=== PATIENT | female | born 1935 | race Hispanic/Latino ===

== ENCOUNTER 2018-03-30 10:52 | Inpatient (IN) | payer MEDICARE, OTHER ==
[2018-03-30] MEDS ORDERED: Dexamethasone 20 MG/5 ML VIAL ONE (11:10)
[2018-03-30] MEDS ORDERED: Lidocaine 1% PF 5 ML VIAL ONE (11:10)
[2018-03-30] MEDS ORDERED: ePHEDrine/0.9% NaCl/PF SYRINGE 50 mg/10 ml ONE (11:10)
[2018-03-30] MEDS ORDERED: Ondansetron HCl/PF 4 MG/2 ML Vial ONE (11:10)
[2018-03-30] MEDS ORDERED: PROPOFOL 200 MG/20 ML VIAL ONE (11:10)
[2018-03-30] MEDS ORDERED: PHENYLEPHRINE-NS 100 MCG/ML 10 ML SYRINGE ONE (11:10)
[2018-03-30] MEDS ORDERED: Glycopyrrolate 0.2 MG/ML 5 ML SYRINGE ONE (11:10)
[2018-03-30 11:41] LABS: PTT 23.8 SEC (22.9-36.1)
[2018-03-30 11:47] LABS: INR-International Normal Ratio 1.1; Prothrombin Time 13.9 SEC (12.0-14.7)
[2018-03-30 11:54] LABS: ALT (SGPT) 13 U/L (8-55); AST (SGOT) 24 U/L (5-34); Albumin 4.1 g/dL (3.4-4.8); Alkaline Phosphatase 91 U/L (40-150); Anion Gap 14 mmol/L (10-20); BUN (Urea Nitrogen) 32 mg/dL (9.8-20.1); Bilirubin, Total 0.5 mg/dL (0.2-1.2); CK (CPK) 276 U/L (29-168); Calc. Creatinine Clearance 0 mL/min (70-130); Calcium 9.1 mg/dL (7.8-10.44); Carbon Dioxide 23 mmol/L (23-31); Chloride 107 mmol/L (98-107); Estimated GFR-MDRD 37; Globulin 3.3 g/dL (2.4-3.5); Glucose 108 mg/dL (83-110); Potassium 4.3 mmol/L (3.5-5.1); Protein, Total 7.4 g/dL (6.0-8.3); Sodium 140 mmol/L (136-145)
--- NOTE | 2018-03-30 11:56 | CT ---
CT OF THE BRAIN WITHOUT CONTRAST: Indication: Level II trauma. History of all with left femur fracture. Comparison: None. FINDINGS: No acute infarct, hemorrhage, or hydrocephalus is present. IMPRESSION: No acute intracranial abnormality. POS: [facility]
--- NOTE | 2018-03-30 11:57 | RAD ---
AP PELVIS: Indication: History of trauma with pelvic pain. FINDINGS: There is suspected hernia mesh involving the lower aspect of the pelvis. There is scattered degenerat josué and osteoarthritic change. Enthesopathic change seen off the proximal femurs and pelvis. There ar e prominent vascular calcifications within the adjacent soft tissues. IMPRESSION: No acute osseous abnormality. POS: [facility]
[2018-03-30 11:58] LABS: #Basophils 0.1 thou/uL (0.0-0.2); #Eosinphils 0.1 thou/uL (0.0-0.7); #Monocytes 0.6 thou/uL (0.11-0.59); %Basophils 0.6 % (0.0-1.0); %Eosinophils 1.3 % (0.0-10.0); %Lymphocytes 18.2 % (21.0-51.0); %Monocytes 5.9 % (0.0-10.0); Hemoglobin 12.9 g/dL (12.0-16.0); Mean Corpuscular HGB CONC 33.4 g/dL (32.0-36.0); Mean Corpuscular Hemoglobin 31.4 pg (27.0-31.0); Mean Corpuscular Volume 94.1 fL (78.0-98.0); Mean Platelet Volume 6.5 fL (7.4-10.4); Platelet Count 270 thou/uL (130-400); RBC Distribution Width 11.9 % (11.5-14.5); Red Blood Cell (RBC) Count 4.12 mill/uL (4.20-5.40); White Blood Cell (WBC) Count 10.8 thou/uL (4.8-10.8)
--- NOTE | 2018-03-30 11:58 | RAD ---
TWO VIEWS LEFT FEMUR: History: Trauma with left femur pain. FINDINGS: There is a comminuted midshaft left femur fracture with displacement of the distal fragment slightly medially one-half shaft width. There is valgus malalignment at the fracture site. There is moderate d egenerative arthrosis of the visualized left knee. There is mild degenerative arthrosis of the left h ip. IMPRESSION: Angulated mildly displaced left midshaft femur fracture. POS: [facility]
--- NOTE | 2018-03-30 12:00 | CT ---
CT CERVICAL SPINE WITHOUT CONTRAST: Indication: History of fall with left femur fracture and neck pain. Comparison: None. FINDINGS: There is mild multilevel spondylosis of the cervical spine. No acute fracture or subluxation is evide nt. Craniocervical junction appears within normal limits. Prevertebral soft tissues are normal. Lung apices are clear. IMPRESSION: No acute osseous abnormality. Findings concerning CT of the brain and cervical spine were called to Zenaida Wilson at 11:38 a.m. 03-30-18. Code AIME POS: [facility]
[2018-03-30] MEDS ORDERED: Fentanyl 100 MCG/2 ML VIAL ONE (12:32)
--- NOTE | 2018-03-30 12:52 | RAD ---
AP CHEST: Indication: History of trauma and chest pain. Comparison: 3-6- FINDINGS: Chronic lung change with mild cardiomegaly is stable. There is an expected skin fold within the upper thorax. No definite pneumothorax is evident. No definite acute osseous abnormality is evident. IMPRESSION: 1. Stable chronic lung changes of cardiomegaly. 2. This line traversing the upper thorax may be related to skin fold in the back. No definite pneumot horax, contusion or pleural effusion is demonstrated. POS: [facility]
--- NOTE | 2018-03-30 12:53 | RAD ---
THREE VIEWS LEFT SHOULDER: Indication: Left shoulder pain and trauma. Comparison: None. FINDINGS: There is some mild glenohumeral and AC joint osteoarthrosis. There is diffuse osteopenia. Visualized left lung is clear. IMPRESSION: No acute osseous abnormality. POS: [facility]
[2018-03-30] MEDS ORDERED: CEFAZOLIN/Water 2 GM/20 ML SYRINGE SLOW IVP SCH (13:00)
[2018-03-30] MEDS ORDERED: Ondansetron HCl/PF 4 MG/2 ML Vial IVP PRN ×2 (13:14→16:19)
[2018-03-30] MEDS ORDERED: traMADol HCl 50 MG TAB PO PRN (13:14)
[2018-03-30] MEDS ORDERED: Bisacodyl 10 MG SUPP PR PRN (13:14)
[2018-03-30] MEDS ORDERED: Ondansetron ODT 4 MG TAB PO PRN (13:14)
[2018-03-30] MEDS ORDERED: Milk Of Magnesia 30 ML UDCUP PO PRN (13:14)
[2018-03-30] MEDS ORDERED: Fentanyl 100 MCG/2 ML VIAL SLOW IVP PRN (13:14)
--- NOTE | 2018-03-30 13:18 | CON ---
DATE OF CONSULTATION: 03/30/2018 HISTORY OF PRESENT ILLNESS: We were asked by the Emergency Room and Trauma to see the patient. The patient was living at home with her and family. When the came in to use the restroom , found the patient on the ground. The family feels that the patient may have fallen out of bed. Th e patient does have dementia, Alzheimer's, but is able to answer questions fairly well. She does hav e a fairly significant amount of pain in that left lower extremity. She is currently in an immobiliz ation, a half-ring splint. Any time we moved this or try and loosen it, she is in quite a bit of katarina n. She denies any numbness or tingling into her extremities and can wiggle her toes and follow comma nds. Family is unsure if there is any loss of consciousness. Patient does not recall hitting her he ad nor does she have any bruising or lumps or bumps to the head or scalp or face. PAST MEDICAL HISTORY: Positive for glaucoma; coronary artery disease with an VA, treated with stents ; diabetes, type 2; hypertension; Alzheimer's. PAST SURGICAL HISTORY: Knee meniscectomy, appendectomy, cataracts, and stents. SOCIAL HISTORY: No alcohol or nicotine products. Resides at home with family. ALLERGIES: CODEINE. CURRENT MEDICATIONS: Per list is Fosamax, Ecotrin, calcium carbonate with vitamin D, Zyrtec, Dulcola x stool softeners, Aricept 5 and 10 mg, Cosopt eye drops for glaucoma, Atrovent, Avapro, Lamictal, Na menda, metformin, Toprol-XL, Nexium, simvastatin, and recently started mirtazapine for diet. REVIEW OF SYSTEMS: The patient is very sweet. Because we did not move her legs, she is in no acute distress. Her only complaint currently is that left leg pain. Denies any numbness and tingling in t he lower extremities. Denies any chest pain or any shortness of breath. Rest of review of systems n egative. PHYSICAL EXAMINATION: GENERAL: A well-nourished female, resting on a gurney in bed 21 in the emergency room, currently in a cervical collar. Speech is clear and she is answering simple questions okay. Family is giving us a history more so than the patient. HEENT: Normal exam. Face symmetric, tongue midline. NECK: In a cervical collar. EXTREMITIES: Upper extremities, other than some bruising on her arms, she is moving these fairly equ ally and they are in equal size, shape, symmetry, normal bulk and tone. Lower extremities, right low er extremity normal exam. Left lower extremity is in an immobilization traction splint. Palpation o r movement of that leg causes her some significant pain, but she has good, equal, symmetric DP and PT pulses, and is moving both of her foot and digits well. IMAGING: X-rays show a left femur fracture, approximately mid shaft. LABORATORY RESULTS: CBC within normal limits. Coags normal. Chemistries: BUN is 32. Creatinine 1 .37, a little bit elevated. Creatine kinase is also elevated to 76. ASSESSMENT: 1. Fall with ensuing left femur fracture. 2. Multiple health issues. 3. Alzheimer's. 4. Hypertension 5. Diabetes. PLAN: I spoke extensively with the family. Plan would be to fix her femur today and do an antegrade nail. I have explained the procedure, the patient's risks and benefits. The patient and family at the bedside is amenable to go forth with the procedure. We need medical clearance from trauma. Once we get that, we will proceed forth with the surgery. She is getting a Majano catheter inserted, lee ann fraser will help, get some fentanyl for some pain. We will get her consented. Hopefully, get her on the surgery schedule this afternoon. Her last time she ate was yesterday evening per family. Darell Jovel PA-C dictating for Ag Escobedo M.D.
[2018-03-30] MEDS ORDERED: Promethazine HCl 25 MG/ML VIAL IM PRN (16:19)
[2018-03-30] MEDS ORDERED: Promethazine HCl 25 MG/ML VIAL SLOW IVP PRN (16:19)
[2018-03-30 18:16] VITALS: BMI 25.3
[2018-03-30] MEDS ORDERED: TETANUS AND DIPHTHERIA TOX/PF 0.5 ML DISP.SYRIN IM SCH (18:30)
[2018-03-30] MEDS: Dorzolamide HCl/Timolol Maleate 2%/0.5% Ophth Soln 10 ml Bottle EA EYE SCH (20:23)
[2018-03-30] MEDS: Ipratropium Bromide 0.03% Nasal Inhaler 30 ml Bottle EA NARE SCH (20:24)
[2018-03-30] MEDS: Mirtazapine 30 MG TAB PO SCH (20:24)
[2018-03-30] MEDS: Simvastatin 20 MG TAB PO SCH (20:27)
[2018-03-30] MEDS: Donepezil HCl 10 MG TAB PO SCH (20:27)
[2018-03-30] MEDS: Docusate 100 MG CAP PO SCH (20:28)
[2018-03-30] MEDS: Calcium Carbonate + Vit D 1 TAB PO SCH (20:28)
[2018-03-30] MEDS ORDERED: Aspirin 81 mg Enteric Coated Tablet PO SCH (21:00)
[2018-03-30] MEDS: Lactated Ringer's 1,000 ML IV SCH (21:16)
[2018-03-30] MEDS: lamoTRIgine 25 MG TAB PO SCH (21:19)
--- NOTE | 2018-03-30 23:51 | OP ---
DATE OF SURGERY: 03/30/2018 PREOPERATIVE DIAGNOSIS: Left femoral shaft fracture. POSTOPERATIVE DIAGNOSIS: Left femoral shaft fracture. SURGICAL PROCEDURE: Intramedullary nail stabilization of left femur. ANESTHESIA: General. SURGEON: Ag Escobedo MD PRISM MEASURER: Darell Jovel PA-C IMPLANTS: Synthes X nail measuring 10 x 360 mm with two cross lock screws. COMPLICATIONS: None. DRAINS: None. SPECIMEN: None. OUTCOME: Near anatomic alignment. INDICATIONS: The patient is an 82-year-old lady found down with femoral shaft fracture. After discu ssion with patient and her family including risks and benefits, we decided to proceed with intramedul kiet stabilization for this midshaft fracture. Informed consent has been obtained. I believe all qu estions were answered. PROCEDURE IN DETAIL: The patient was brought to the operating room and a timeout performed followed by induction of general anesthesia. The patient was then positioned supine on the fracture table wit h two legs scissored to allow for AP lateral C-arm imaging of the left femur. A sterile prep and ta pe was then performed of the left thigh. Next, a small incision was made initially proximal to the t ip of the greater trochanter this being too proximal and as such a second incision was made just to t he tip of the greater trochanter and then blunt dissection carried down to the tip of the troch, a th readed guidewire was then passed from the medial side of the trochanter into the proximal femur canal . Once appropriately positioned, a reamer was passed over this guidewire to open the canal. Next, a ball-tip guidewire was passed down the canal across the fracture in the distal femoral metaphysis. This was then followed by reaming, starting at 8.5 and continuing up to 11. Once reamed a 10 x 360-m m nail was passed over the guidewire, once appropriately positioned, a single distal cross lock screw was placed in freehand technique from lateral to medial. The fracture was then backslapped to try a nd get compression and then a single dynamic screw was placed proximally through the jig. The jig wa s then removed from the nail and then AP, lateral C-arm images were obtained. The two proximal wound s were irrigated with normal saline and closed in layers with 2-0 Vicryl and janae. The two small stab wounds for cross lock screws were closed with janae. Xeroform gauze tape dressing was applied to the thigh wounds and then the patient was transferred to recovery room in stable condition. Ther e were no complications. She tolerated the procedure well.
[2018-03-31] MEDS: traMADol HCl 50 MG TAB PO PRN ×2 (03:06→23:46)
[2018-03-31 05:13] LABS: #Lymphocytes 1.8 thou/uL (1.20-3.40); #Monocytes 0.8 thou/uL (0.11-0.59); #Neutrophils 7.1 thou/uL (1.40-6.50); %Basophils 0.3 % (0.0-1.0); %Eosinophils 0.2 % (0.0-10.0); %Lymphocytes 18.4 % (21.0-51.0); %Monocytes 8.6 % (0.0-10.0); %Neutrophils 72.5 % (42.0-75.0); Hemoglobin 11.2 g/dL (12.0-16.0); Mean Corpuscular HGB CONC 32.6 g/dL (32.0-36.0); Mean Corpuscular Hemoglobin 30.6 pg (27.0-31.0); Mean Corpuscular Volume 93.9 fL (78.0-98.0); Mean Platelet Volume 6.5 fL (7.4-10.4); Platelet Count 250 thou/uL (130-400); RBC Distribution Width 11.8 % (11.5-14.5); Red Blood Cell (RBC) Count 3.66 mill/uL (4.20-5.40); White Blood Cell (WBC) Count 9.8 thou/uL (4.8-10.8)
[2018-03-31] MEDS: metFORMIN XR 500 MG TAB PO SCH (07:56)
[2018-03-31] MEDS: lamoTRIgine 25 MG TAB PO SCH ×2 (08:53→20:17)
[2018-03-31] MEDS: Calcium Carbonate + Vit D 1 TAB PO SCH ×2 (08:54→20:11)
[2018-03-31] MEDS: Cetirizine HCl 10 MG TAB PO SCH (08:54)
[2018-03-31] MEDS: Aspirin 325 mg Enteric Coated Tablet PO SCH (08:54)
[2018-03-31] MEDS: Ipratropium Bromide 0.03% Nasal Inhaler 30 ml Bottle EA NARE SCH ×2 (08:55→20:08)
[2018-03-31] MEDS: Dorzolamide HCl/Timolol Maleate 2%/0.5% Ophth Soln 10 ml Bottle EA EYE SCH ×2 (08:55→20:08)
--- NOTE | 2018-03-31 09:50 | RAD ---
INTRAOPERATIVE FLUOROSCOPIC IMAGES OF THE LEFT FEMUR: Date: 03-30-18 Comparison: 03-30-18 FINDINGS: AP and lateral intraoperative fluoroscopic images of the left femur are submitted for interpretation. There is an intramedullary navjot with proximal distal interlocking screws transfixing the previously se en fracture involving the mid diaphysis of the left femur. There is improvement in alignment of the f racture fragments. No hardware complication is seen. Vascular calcifications are seen in the femoral arteries as well as popliteal artery. There is osteoarthritis involving the left knee. Surgical clips overlie the left superior pubic ramus. IMPRESSION: Post-surgical change related to internal fixation of fracture left femoral diaphysis. POS: [facility]
[2018-03-31] MEDS: Acetaminophen 325 MG TAB PO PRN ×2 (11:43→18:04)
[2018-03-31] MEDS: Lactated Ringer's 1,000 ML IV SCH ×2 (12:29→13:56)
[2018-03-31] MEDS: Donepezil HCl 10 MG TAB PO SCH (20:09)
[2018-03-31] MEDS: Docusate 100 MG CAP PO SCH (20:11)
[2018-03-31] MEDS: Simvastatin 20 MG TAB PO SCH (20:16)
[2018-03-31] MEDS: Mirtazapine 30 MG TAB PO SCH (20:53)
[2018-04-01 04:21] LABS: #Basophils 0.1 thou/uL (0.0-0.2); #Eosinphils 0.2 thou/uL (0.0-0.7); #Lymphocytes 2.3 thou/uL (1.20-3.40); %Basophils 0.6 % (0.0-1.0); %Eosinophils 2.1 % (0.0-10.0); %Lymphocytes 23.8 % (21.0-51.0); %Monocytes 10.3 % (0.0-10.0); %Neutrophils 63.1 % (42.0-75.0); Mean Corpuscular HGB CONC 34.8 g/dL (32.0-36.0); Mean Corpuscular Hemoglobin 32.7 pg (27.0-31.0); Mean Corpuscular Volume 94.2 fL (78.0-98.0); Mean Platelet Volume 6.6 fL (7.4-10.4); Platelet Count 202 thou/uL (130-400); RBC Distribution Width 11.8 % (11.5-14.5); Red Blood Cell (RBC) Count 2.74 mill/uL (4.20-5.40); White Blood Cell (WBC) Count 9.5 thou/uL (4.8-10.8)
[2018-04-01] MEDS: Lactated Ringer's 1,000 ML IV SCH (04:27)
[2018-04-01] MEDS: Acetaminophen 325 MG TAB PO PRN (08:00)
[2018-04-01] MEDS: metFORMIN XR 500 MG TAB PO SCH (08:01)
[2018-04-01] MEDS: Ipratropium Bromide 0.03% Nasal Inhaler 30 ml Bottle EA NARE SCH ×2 (09:54→21:01)
[2018-04-01] MEDS: Dorzolamide HCl/Timolol Maleate 2%/0.5% Ophth Soln 10 ml Bottle EA EYE SCH ×2 (09:55→21:01)
[2018-04-01] MEDS: lamoTRIgine 25 MG TAB PO SCH ×3 (09:55→22:51)
[2018-04-01] MEDS: Calcium Carbonate + Vit D 1 TAB PO SCH ×3 (09:55→22:51)
[2018-04-01] MEDS: Aspirin 325 mg Enteric Coated Tablet PO SCH (09:56)
[2018-04-01] MEDS: Cetirizine HCl 10 MG TAB PO SCH (09:56)
[2018-04-01] MEDS: Docusate 100 MG CAP PO SCH ×2 (20:58→22:51)
[2018-04-01] MEDS: Donepezil HCl 10 MG TAB PO SCH (20:58)
[2018-04-01] MEDS: Mirtazapine 30 MG TAB PO SCH ×2 (21:02→22:51)
[2018-04-02 05:15] LABS: #Basophils 0.1 thou/uL (0.0-0.2); #Eosinphils 0.3 thou/uL (0.0-0.7); #Lymphocytes 2.2 thou/uL (1.20-3.40); #Monocytes 1.1 thou/uL (0.11-0.59); #Neutrophils 6.6 thou/uL (1.40-6.50); %Basophils 0.7 % (0.0-1.0); %Eosinophils 2.6 % (0.0-10.0); %Lymphocytes 21.6 % (21.0-51.0); %Monocytes 10.5 % (0.0-10.0); %Neutrophils 64.7 % (42.0-75.0); Hemoglobin 9.8 g/dL (12.0-16.0); Mean Corpuscular HGB CONC 33.3 g/dL (32.0-36.0); Mean Corpuscular Hemoglobin 31.5 pg (27.0-31.0); Mean Corpuscular Volume 94.5 fL (78.0-98.0); Mean Platelet Volume 6.9 fL (7.4-10.4); Platelet Count 247 thou/uL (130-400); RBC Distribution Width 11.7 % (11.5-14.5); Red Blood Cell (RBC) Count 3.09 mill/uL (4.20-5.40); White Blood Cell (WBC) Count 10.2 thou/uL (4.8-10.8)
[2018-04-02] MEDS: Calcium Carbonate + Vit D 1 TAB PO SCH (08:58)
[2018-04-02] MEDS: lamoTRIgine 25 MG TAB PO SCH (08:58)
[2018-04-02] MEDS: metFORMIN XR 500 MG TAB PO SCH (08:58)
[2018-04-02] MEDS: Dorzolamide HCl/Timolol Maleate 2%/0.5% Ophth Soln 10 ml Bottle EA EYE SCH (08:58)
[2018-04-02] MEDS: Cetirizine HCl 10 MG TAB PO SCH (08:58)
[2018-04-02] MEDS: Ipratropium Bromide 0.03% Nasal Inhaler 30 ml Bottle EA NARE SCH (08:59)
[2018-04-02] MEDS: Aspirin 325 mg Enteric Coated Tablet PO SCH (08:59)
[2018-04-02 15:17] VITALS: BP 151/75; TEMP 97.5
--- NOTE | 2018-04-04 11:29 | EKG ---
Test Reason : Blood Pressure : / mmHG Vent. Rate : 065 BPM Atrial Rate : 065 BPM P-R Int : 170 ms QRS Dur : 094 ms QT Int : 416 ms P-R-T Axes : 000 008 -20 degrees QTc Int : 432 ms Normal sinus rhythm Cannot rule out Inferior infarct , age undetermined T wave abnormality, consider lateral ischemia Abnormal ECG Confirmed by RACHEL NEGRETE DO ([id number]), graphics editor DALLIN PERAZA ([id number]) on 04/04/2018 11:29:03 AM Referred By: Confirmed By:RACHEL NEGRETE DO
[2018-04-06] MEDS ORDERED: Alendronate Sodium 70 mg Tablet PO SCH (06:00)
== END 2018-04-02 16:10 | DRG 482 ==
LOC: ERS 10:52 → SDC 13:10 → SURG A 13:24
PROVIDERS: ADMIT Orthopaedic Surgery; ATTEND Surgery
PROC: 0QH936Z Insertion of Intramedullary Internal Fixation Device into Left Femoral Shaft, Percutaneous Approach (ICD-10-PCS; principal; 2018-03-30)
DX: S72.302A Unspecified fracture of shaft of left femur, initial encounter for closed fracture (principal); W19.XXXA Unspecified fall, initial encounter; Y92.009 Unspecified place in unspecified non-institutional (private) residence as the place of occurrence of the external cause; G30.9 Alzheimer's disease, unspecified; F02.80 Dementia in other diseases classified elsewhere, unspecified severity, without behavioral disturbance, psychotic disturbance, mood disturbance, and anxiety; H40.9 Unspecified glaucoma; I25.10 Atherosclerotic heart disease of native coronary artery without angina pectoris; E11.9 Type 2 diabetes mellitus without complications; I10 Essential (primary) hypertension; I25.2 Old myocardial infarction; Z95.5 Presence of coronary angioplasty implant and graft
CPT/HCPCS: 27502; 36415; 51702; 70450; 71045; 72125; 72170; 76001; 80053; 85025; 85610; 85730; 86850; 86900; 86901; 93005; 96374; C1713; C1769; G0390; G8978-GP-CM; G8979-GP-CK; G8987-GO-CM; G8988-GO-CJ; J0131; J1100; J2001; J2405; J2704; J3010